=== PATIENT | female | born 1975 | race Caucasian/White ===

== ENCOUNTER 2016-08-14 05:31 | Day surgery (SDC) | payer BC ==
[~2016-08-14] VITALS: Ht 167.6 cm; Wt 111.5 kg
[~2016-08-14 05:31] MED LIST: IBUPROFEN200 M1 PO; SERTRALINE HCL100 MG PO; TRILAFON8 MG PO; VENTOLIN HFA18 GM IH
[2016-08-14 06:51] VITALS: BP 157/92
[2016-08-14] MEDS ORDERED: PERCOCET 5/31 TABLET PO (07:53)
[2016-08-14 08:38] VITALS: BP 137/88
[2016-08-14 09:48] VITALS: BP 143/78
== END 2016-08-14 10:00 | disposition home or self-care (01) ==
LOC: SDC 05:31
DX: Z30.433 Encounter for removal and reinsertion of intrauterine contraceptive device (principal); Z88.2 Allergy status to sulfonamides; Z88.6 Allergy status to analgesic agent; Z82.49 Family history of ischemic heart disease and other diseases of the circulatory system
CPT/HCPCS: J0690; J1100; J2250; J2405; J3010